=== PATIENT | female | born 2000 | race Native Hawaiian/Other Pacific Islander ===

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

== ENCOUNTER 2021-01-03 15:20 | Outpatient (CLI) | payer OTHER ==
[2021-01-03 15:32] LABS: PLATELET COUNT 268 K/uL (152-353)
== END 2021-01-03 22:54 | disposition home or self-care (01) ==
LOC: LABW 15:20
PROVIDERS: ATTEND Nurse Practitioner Family
DX: D62 Acute posthemorrhagic anemia (principal)
CPT/HCPCS: 36415; 85008; 85027

== ENCOUNTER 2021-01-05 16:16 | Emergency (ER) | payer OTHER ==
[~2021-01-05] VITALS: Ht 167.6 cm; Wt 57.6 kg
[2021-01-05 18:11] LABS: PLATELET COUNT 175 K/uL (152-353)
[2021-01-05 18:20] LABS: POTASSIUM 2.4 mmol/L (3.6-5.2)
[2021-01-05 20:09] VITALS: BP 89/36; TEMP 99.1
== END 2021-01-05 20:09 | disposition home or self-care (01) ==
LOC: ED 16:16
PROVIDERS: Hospitalist
DX: J32.8 Other chronic sinusitis (principal); R51.9 Headache, unspecified; R50.9 Fever, unspecified; E87.6 Hypokalemia; Z03.818 Encounter for observation for suspected exposure to other biological agents ruled out
CPT/HCPCS: 80048; 85008; 85027; 87502; 87635; 87651; 96365; 96375; 99284; J0696; J1200; J1885; J2405; U0003

== ENCOUNTER 2021-05-13 09:29 | Emergency (ER) | payer OTHER | END 2021-05-13 12:18 | disposition home or self-care (01) | LOC: ED 09:29 | DX: K02.9 Dental caries, unspecified (principal) | CPT/HCPCS: 96372; 99283; J0696; J1885 ==

== ENCOUNTER 2021-09-28 18:10 | Emergency (ER) | payer OTHER ==
[~2021-09-28] VITALS: Ht 167.6 cm; Wt 63.5 kg
[2021-09-28 19:05] LABS: PLATELET COUNT 181 K/uL (152-353)
[2021-09-28 19:14] LABS: POTASSIUM 3.5 mmol/L (3.6-5.2)
[2021-09-28 20:00] VITALS: BP 103/66; TEMP 97.5
== END 2021-09-28 20:05 | disposition home or self-care (01) ==
LOC: ED 18:10
PROVIDERS: Emergency Medicine
DX: R10.13 Epigastric pain (principal); K21.9 Gastro-esophageal reflux disease without esophagitis
CPT/HCPCS: 36415; 80053; 81000; 81025; 82150; 83690; 85027; 86677; 96374; 99284; J3490